=== PATIENT | female | born 2000 | race Caucasian/White ===

== ENCOUNTER 2023-10-29 16:05 | Emergency (ER) | payer OTHER ==
[2023-10-29 16:11] VITALS: BP 119/77; PULSE 90; RESP 18; TEMP 98.2; BMI 21.7
[2023-10-29] MEDS ORDERED: LIDOCAINE 5% TOPICAL PATCH TP ONE (17:36)
[2023-10-29] MEDS ORDERED: ACETAMINOPHEN 500 MG TABLET (FP) PO ONE (17:36)
[2023-10-29] MEDS ORDERED: predniSONE 20 MG TABLET (UD) PO ONE (17:36)
[2023-10-29] MEDS ORDERED: LIDOCAINE 4% PATCH TP ONE (17:56)
[2023-10-29] MEDS ORDERED: predniSONE 20 MG TABLET (UD) ONE (17:56)
[2023-10-29] MEDS ORDERED: ACETAMINOPHEN 500 MG TABLET (FP) ONE (17:56)
[2023-10-29] MEDS ORDERED: LIDOCAINE PATCH REMOVAL MC ONE (22:00)
== END 2023-10-29 18:32 | disposition home or self-care (01) ==
LOC: JERFT 16:05
DX: M79.602 Pain in left arm (principal); R07.9 Chest pain, unspecified; M54.2 Cervicalgia; R20.2 Paresthesia of skin; M25.512 Pain in left shoulder; M54.9 Dorsalgia, unspecified; M54.10 Radiculopathy, site unspecified
CPT/HCPCS: 93005; 93010; 99283-25